=== PATIENT | female | born 1985 | race Caucasian/White ===

== ENCOUNTER 2025-06-24 03:10 | Inpatient (IN) | payer OTHER ==
[~2025-06-24] VITALS: Ht 170.2 cm; Wt 52.2 kg
[2025-06-24 03:11] VITALS: O2SAT 99
[2025-06-24] MEDS ORDERED: ONDANSETRON 4MG ODT PO ONE (03:30)
[2025-06-24] MEDS: SODIUM CHLORIDE 0.9% 1,000 ML IV ONE (04:08)
[2025-06-24 04:15] LABS: BASOPHILS % 0.2 % (0.0-2.0); EOSINOPHILS % 0.0 % (0.0-5.0); HEMATOCRIT. 36.6 % (36.0-48.0); HEMOGLOBIN. 12.1 g/dL (12.0-16.0); LYMPHOCYTES % 9.3 % (20.0-50.0); MEAN PLATELET VOLUME 8.1 fl (7.4-10.4); MONOCYTES % 2.1 % (2.0-8.0); NEUTROPHILS % 88.4 % (40.0-76.0); PLATELET 193 x1000/uL (130-400); RED BLOOD CELL COUNT 4.27 mill/uL (4.2-5.4); RED CELL DISTRIBUTION WIDTH 15.2 % (11.6-14.6)
[2025-06-24 04:31] LABS: CREATININE 0.7 mg/dL (0.6-1.0); UREA NITROGEN BLOOD 12 mg/dL (9-23)
[2025-06-24 04:33] LABS: ASPARTATE AMINOTRANSFERASE 19 IU/L (<34); BILIRUBIN DIRECT 0.3 mg/dL (<=3.0); BILIRUBIN TOTAL 1.2 mg/dL (0.1-1.0); PROTEIN TOTAL 6.8 g/dL (6.0-8.3)
[2025-06-24] MEDS: ONDANSETRON HCL 4MG/2ML INJ IV ONE (04:38)
[2025-06-24] MEDS: HALOPERIDOL LACTATE 5MG/ML VIAL IM ONE (04:38)
[2025-06-24 04:48] LABS: HCG SCREEN NEGATIVE
[2025-06-24] MEDS ORDERED: ONDA4TAB50 MT (05:33)
[2025-06-24] MEDS ORDERED: DEXTROSE 50% WATER 50ML SYRINGE IV PRN (09:15)
[2025-06-24] MEDS ORDERED: ONDANSETRON HCL 4MG/2ML INJ IV PRN (09:15)
[2025-06-24] MEDS ORDERED: ACETAMINOPHEN 325MG TABLET PO PRN ×2 (09:15)
[2025-06-24] MEDS: PANTOPRAZOLE SODIUM 40 MG/VIAL IV SCH (09:15)
[2025-06-24 09:42] LABS: CLARITY URINE CLOUDY (CLEAR); COLOR URINE YELLOW (YELLOW); GLUCOSE URINE NEGATIVE (NEGATIVE); KETONES URINE NEGATIVE (NEGATIVE); LEUKOCYTE ESTERASE URINE TRACE (NEGATIVE); NITRITE URINE NEGATIVE (NEGATIVE); OCCULT BLOOD URINE 2+ (NEGATIVE); PH URINE 7.5 (4.5-8.0); PROTEIN URINE NEGATIVE (NEGATIVE); SPECIFIC GRAVITY URINE 1.017 (1.005-1.030); UROBILINOGEN URINE 1.0 E.U./dL (0.2-1.0)
[2025-06-24 09:53] LABS: BACTERIA URINE 1+; RBC URINE 0-2 /hpf (0-2); SQUAMOUS EPITHELIAL CELL URINE 2+ /lpf (RARE/1+); YEAST URINE NONE SEEN
[2025-06-24 09:54] LABS: AMORPHOUS SEDIMENT URINE 2+ /lpf
[2025-06-24 10:12] LABS: *AMPHETAMINES SCREEN URINE NEGATIVE (NEGATIVE); *BARBITURATES SCREEN URINE NEGATIVE (NEGATIVE); *BENZODIAZEPINES SCREEN URINE NEGATIVE (NEGATIVE); *COCAINE SCREEN URINE NEGATIVE (NEGATIVE)
[2025-06-24 10:13] LABS: CANNABINOID URINE SCREEN PRESUMPTIVE POSITIVE (NEGATIVE); ECSTASY MDMA SCREEN URINE NEGATIVE (NEGATIVE); METHADONE URINE SCREEN NEGATIVE (NEGATIVE); OPIATES URINE SCREEN NEGATIVE (NEGATIVE); PHENCYCLIDINE URINE SCREEN NEGATIVE (NEGATIVE)
[2025-06-24 11:24] LABS: PHOSPHORUS 3.7 mg/dL (2.5-4.9)
[2025-06-24] MEDS: SODIUM CHLORIDE 0.9% 1,000 ML IV SCH (12:35)
[2025-06-24] MEDS: MAGNESIUM 2 G PREMIX 50 ML IV ONE (13:12)
[2025-06-24] MEDS: BLOOD SUGAR DIAGNOSTIC STRIP TEST SCH (17:00)
[2025-06-24 18:22] VITALS: BP 121/77; PULSE 89; RESP 17; TEMP 36.8072
[2025-06-24 20:00] VITALS: BP 114/67; PULSE 80; RESP 18; TEMP 36.7; O2SAT 98
[2025-06-25] VITALS: BP 109/59; PULSE 78; RESP 18; TEMP 36.3; O2SAT 100
[2025-06-25 04:00] VITALS: BP 124/80; PULSE 77; RESP 18; TEMP 36.6; O2SAT 18
[2025-06-25 07:35] LABS: BASOPHILS % 0.3 % (0.0-2.0); EOSINOPHILS % 2.3 % (0.0-5.0); HEMATOCRIT. 35.6 % (36.0-48.0); HEMOGLOBIN. 11.5 g/dL (12.0-16.0); LYMPHOCYTES % 24.2 % (20.0-50.0); MEAN PLATELET VOLUME 8.0 fl (7.4-10.4); MONOCYTES % 6.8 % (2.0-8.0); NEUTROPHILS % 66.4 % (40.0-76.0); PLATELET 174 x1000/uL (130-400); RED BLOOD CELL COUNT 4.07 mill/uL (4.2-5.4); RED CELL DISTRIBUTION WIDTH 15.6 % (11.6-14.6)
[2025-06-25 07:51] LABS: CREATININE 0.6 mg/dL (0.6-1.0)
[2025-06-25 07:52] LABS: UREA NITROGEN BLOOD 8 mg/dL (9-23)
[2025-06-25 07:53] LABS: PHOSPHORUS 2.3 mg/dL (2.5-4.9)
[2025-06-25 08:00] VITALS: BP 97/60; PULSE 83; RESP 16; TEMP 36.1; O2SAT 100
[2025-06-25] MEDS: SODIUM CHLORIDE 0.45% 1,000 ML IV SCH (11:00)
[2025-06-25 11:50] LABS: ASPARTATE AMINOTRANSFERASE 25 IU/L (<34)
[2025-06-25 11:51] LABS: BILIRUBIN DIRECT 0.5 mg/dL (<=3.0); BILIRUBIN TOTAL 1.6 mg/dL (0.1-1.0); PROTEIN TOTAL 5.3 g/dL (6.0-8.3)
[2025-06-25 12:00] VITALS: BP 117/62; PULSE 93; RESP 16; TEMP 36.7; O2SAT 100
[2025-06-25] MEDS ORDERED: ONDA-239 PO ×2 (14:53→14:54)
[2025-06-25 15:04] VITALS: BP 113/69; PULSE 77; RESP 18; TEMP 98.8
[2025-06-25 16:00] VITALS: BP 113/69; PULSE 77; RESP 18; TEMP 37.1; O2SAT 99
== END 2025-06-25 16:20 | disposition home or self-care (01) | DRG 52 ==
LOC: ER 03:10 → 4WST 08:16 → EDBEDREQ 08:21 → EDBEDREQTM 08:21 → ENRESERV 15:20
PROVIDERS: ADMIT Internal Medicine; ATTEND Internal Medicine
DX: G92.9 Unspecified toxic encephalopathy (principal); F22 Delusional disorders; F12.929 Cannabis use, unspecified with intoxication, unspecified; R11.16 Cannabis hyperemesis syndrome
CPT/HCPCS: 36415; 80048; 80076; 80305; 81003; 82962; 83036; 83735; 84100; 84703; 85025; 99285; A6449; J1630; J2405; J2470; J3475; J7030